=== PATIENT | male | born 2000 | race Two or more races ===

== ENCOUNTER 2020-10-25 16:09 | Emergency (ER) | payer SELFPAY ==
[~2020-10-25] VITALS: Ht 177.8 cm; Wt 77.1 kg
[2020-10-25 16:10] VITALS: BP 153/108
[2020-10-25] MEDS ORDERED: IBUPROFEN 800 MG TAB PO ONE (17:30)
== END 2020-10-25 17:46 | disposition home or self-care (01) ==
LOC: ER 16:09
DX: S53.402A Unspecified sprain of left elbow, initial encounter (principal); S60.222A Contusion of left hand, initial encounter; W19.XXXA Unspecified fall, initial encounter; Y93.89 Activity, other specified; Y92.89 Other specified places as the place of occurrence of the external cause; Y99.8 Other external cause status
CPT/HCPCS: 73080; 73130

== ENCOUNTER 2021-03-27 22:11 | Emergency (ER) | payer MEDICAID ==
[~2021-03-27] VITALS: Ht 180.3 cm; Wt 98.0 kg
[2021-03-27 22:24] VITALS: BP 120/60
== END 2021-03-28 07:05 | disposition home or self-care (01) ==
LOC: ER 22:11
DX: J06.9 Acute upper respiratory infection, unspecified (principal); R07.81 Pleurodynia; F17.210 Nicotine dependence, cigarettes, uncomplicated; Z20.822 Contact with and (suspected) exposure to COVID-19
CPT/HCPCS: 36415; 71045; 87426